=== PATIENT | male | born 1940 | race Caucasian/White ===

== ENCOUNTER 2019-05-16 13:57 | Observation (INO) | payer MEDICARE, BC ==
[~2019-05-16] VITALS: Ht 188 cm; Wt 79.5 kg
--- NOTE | 2019-05-16 15:41 | Diagnostic Imaging Report ---
Exam: Head CT without contrast History: Left-sided weakness, unsteady gait Comparison studies: None Technique: Axial images were obtained from the skull base to the vertex. Coronal and sagittal images reconstructed from the axial data. Dose modulation, iterative reconstruction, and/or weight based adjustment of the mA/kV was utilized to reduce the radiation dose to as low as reasonably achievable. Radiation dose: Total DLP: 969 mGy*cm. Estimated effective dose: DLP x 0.015 Intravenous contrast: None Findings: Scalp: No abnormalities. Bones: No fractures, blastic or lytic lesions. Brain sulci: Mildly prominent. Ventricles: Normal in size and configuration. No hydrocephalus. Extra-axial spaces: Mildly prominent extra-axial spaces along the bifrontal convexities without significant mass effect may be secondary to chronic hypodense subdural fluid collections or secondary to volume loss. No mass or acute hemorrhage. Parenchyma: No mass, acute hemorrhage or acute or chronic cortical insults. Sellar/suprasellar region: No abnormalities. Craniocervical junction: Patent foramen magnum. No Chiari one malformation. Incidental findings: Atherosclerotic calcifications in the carotid siphons and intradural vertebral arteries. IMPRESSION: 1. No acute intracranial abnormalities. 2. Mild generalized volume loss. 3. Mildly prominent extra-axial spaces without mass effect at the bifrontal convexities may be due to volume loss or possibly small chronic extra-axial fluid collections. Signed by: Dr. Timoteo Slaughter M.D. on 05/16/2019 3:38 PM
[2019-05-16] MEDS ORDERED: KETOROLAC TROMETHAMINE 30 MG/ML VIAL IV ONE (16:23)
[2019-05-16] MEDS ORDERED: MORPHINE SULFATE 2 MG/ML SYR 1ML IV PRN (16:45)
[2019-05-16] MEDS ORDERED: ASPIRIN 81 MG CHEW TAB PO ONE (16:45)
--- OUTSIDE RECORDS SUMMARY | 2019-05-16 17:26 | XMS REPORT ---
Author Author [facility] Address Unknown Phone Unavailable Care Team Providers Care Senior Data Analyst Name Role Phone Peyton OCAMPO Unavailable Unavailable Problems This patient has no known problems. Allergies, Adverse Reactions, Alerts This patient has no known allergies or adverse reactions. Medications This patient has no known medications. Results Test Description Test Time Test Comments Text Results Atomic Results Result Comments CT BRAIN WO-HOPD 2019-05-16 15:30:00 [place] [address] Patient Name: GRICEL KNOTT MR #: [id number] : 1940 Age/Sex: 79/M Req #: [id number] Adm Physician: Ordered by: YAIMA OCAMPO MD Report #: [id number] Location: [facility] Room/Bed: Procedure: [id number] HOPD/CT BRAIN WO-HOPD Exam Date: 05/16/19 Exam Time: 1519 REPORT STATUS: Signed Exam: Head CT without contrast History: Left-sided weakness, unsteady gait Comparison studies: None Technique: Axial images were obtained from the skull base to the vertex. Coronal and sagittal images reconstructed from the axial data. Dose modulation, iterative reconstruction, and/or weight based adjustment of the mA/kV was utilized to reduce the radiation dose to as low as reasonably achievable. Radiation dose: Total DLP: 969 mGy*cm. Estimated effective dose: DLP x 0.015 Intravenous contrast: None Findings: Scalp: No abnormalities. Bones: No fractures, blastic or lytic lesions. Brain sulci: Mildly prominent. Ventricles: Normal in size and configuration. No hydrocephalus. Extra-axial spaces: Mildly prominent extra-axial spaces along the bifrontal convexities without significant mass effect may be secondary to chronic hypodense subdural fluid collections or secondary to volume loss. No mass or acute hemorrhage. Parenchyma: No mass, acute hemorrhage or acute or chronic cortical insults. Sellar/suprasellar region: No abnormalities. Craniocervical junction: Patent foramen magnum. No Chiari one malformation. Incidental findings: Atherosclerotic calcifications in the carotid siphons and intradural vertebral arteries. IMPRESSION: 1. No acute intracranial abnormalities. 2. Mild generalized volume loss. 3. Mildly prominent extra-axial spaces without mass effect at the bifrontal convexities may be due to volume loss or possibly small chronic extra-axial fluid collections. Signed by: Dr. Antonio Slaughter M.D. on 05/16/2019 3:38 PM Dictated By: ANTONIO SLAUGHTER MD [id number] Transcribed By: ARTEM on 05/16/19 1538 COPY TO: YAIMA OCAMPO MD
--- NOTE | 2019-05-16 17:35 | NUR ---
PT AND FAMILY AWARE OF POC TO TRANSFER, VITAL SIGNS STABLE, PT VOICES NO COMPLAINTS AT THIS TIME.
--- NOTE | 2019-05-16 17:40 | NUR ---
[facility] CALLED FOR TRANSPORT ETA 45 MIN
--- NOTE | 2019-05-16 18:12 | NUR ---
REPORT TO MAYANK WOODS ALL QUESTIONS ANSWERED
[2019-05-16 19:15] VITALS: BP 183/84
--- NOTE | 2019-05-16 19:15 | NUR ---
patient is a new admit that arrived via stretcher. patient is awake and talking. patient has been assisted into the bed. bed is in the lowest position and call patel is within reach. will continue to monitor patient.
--- NOTE | 2019-05-16 19:30 | NUR ---
patient has a blood pressure of 183/84. MD notifed over phone. received new order for one time does of nifedipine ER 30mg. Medication has been given to patient guillermo continue to monitor patient.
[2019-05-16 20:00] VITALS: BP 183/84
[2019-05-16] MEDS ORDERED: NIFEDIPINE CR 30 MG TAB PO ONE (20:30)
[2019-05-16] MEDS: MORPHINE SULFATE INJ 4 MG/ML INJ 1ML IV PRN (21:14)
[2019-05-16] MEDS: ONDANSETRON HCL INJ 2MG/ML 2ML 2 MG/ML VIAL IV PRN (21:15)
[2019-05-16] MEDS: SODIUM CHLORIDE 0.9% 1000ML 1,000 ML IV SCH (21:27)
[2019-05-17] VITALS (7 sets, daily range): BP systolic 114–146; BP diastolic 62–98
[2019-05-17 05:41] LABS: BASOPHILS # (AUTO) 0.1 (0.0-0.1); BASOPHILS % 1.3 % (0.0-1.0); EOSINOPHILS # (AUTO) 0.2 (0.0-0.4); EOSINOPHILS % 2.3 % (0.0-6.0); HEMATOCRIT 35.5 % (38.2-49.6); HEMOGLOBIN 12.1 g/dL (14.0-18.0); LYMPHOCYTES # (AUTO) 2.1 (1.0-3.2); MEAN CORPUSCULAR HEMOGLOBIN 32.2 pg (28-32); MEAN CORPUSCULAR HGB CONC 34.1 g/dL (31-35); MEAN CORPUSCULAR VOLUME 94.4 fL (81-99); MONOCYTES # (AUTO) 0.8 (0.2-0.8); MONOCYTES % 7.8 % (4.4-11.3); NEUTROPHILS # (AUTO) 6.6 (2.1-6.9); NEUTROPHILS % 65.6 % (38.7-80.0); PLATELET COUNT 139 x10e3/uL (140-360); RED BLOOD COUNT 3.76 x10e6/uL (4.3-5.7); RED CELL DISTRIBUTION WIDTH 13.5 % (11.7-14.4)
[2019-05-17 05:54] LABS: PROTHROMBIN TIME 13.7 seconds (11.9-14.5)
[2019-05-17 05:55] LABS: PARTIAL THROMBOPLASTIN TIME 31.5 seconds (23.8-35.5)
[2019-05-17 05:57] LABS: ANION GAP 12.4 mmol/L (8-16); BLOOD UREA NITROGEN 15 mg/dL (7-26); BUN/CREATININE RATIO 19 (6-25); CALCIUM 9.1 mg/dL (8.4-10.2); CARBON DIOXIDE 25 mmol/L (22-29); CHLORIDE 105 mmol/L (98-107); CHOL/HDL RATIO 2.5 (3.9-4.7); CHOLESTEROL 132 MD/DL (0-199); EST GLOMERULAR FILTRATION RATE > 60 ML/MIN (60-); GLUCOSE 81 mg/dL (74-118); HDL CHOLESTEROL 52 MG/DL (40-60); LDL CHOLESTEROL 68 MG/DL (60-130); POTASSIUM 4.4 mmol/L (3.5-5.1); SODIUM 138 mmol/L (136-145); TRIGLYCERIDES 59 MG/DL (0-149)
[2019-05-17] MEDS: MORPHINE SULFATE INJ 4 MG/ML INJ 1ML IV PRN (06:21)
[2019-05-17] MEDS: ONDANSETRON HCL INJ 2MG/ML 2ML 2 MG/ML VIAL IV PRN (06:21)
--- NOTE | 2019-05-17 06:55 | NUR ---
Pt received resting in bed. Alert and oriented x4. Oriented to staff and surroundings. Encouraged to press call patel if help needed. Emotional support given. Will monitor
--- NOTE | 2019-05-17 06:58 | NUR ---
report given to day nurse. patient is resting comfortably in bed. bed is in lowest position and call patel is within reach.
[2019-05-17 07:03] LABS: CREATINE KINASE 62 IU/L (30-200)
[2019-05-17] MEDS: ASPIRIN 81 MG ENTERIC COATED PO SCH (08:14)
[2019-05-17] MEDS: SODIUM CHLORIDE 0.9% 1000ML 1,000 ML IV SCH (08:14)
[2019-05-17] MEDS ORDERED: ACETAMINOPHEN 325 MG TAB PO PRN (10:45)
[2019-05-17] MEDS ORDERED: ALFUZOSIN HCL10 MG PO (11:41)
[2019-05-17] MEDS ORDERED: MULTIPLE VITAM1 EAC2 PO (11:41)
[2019-05-17] MEDS ORDERED: TEMAZEPAM15 MG PO (11:41)
[2019-05-17] MEDS ORDERED: DIOVAN80 MG PO (11:41)
[2019-05-17] MEDS ORDERED: ULTRAM 50MG50 MG PO (11:41)
[2019-05-17] MEDS ORDERED: ASPIR 8181 MG PO (11:41)
[2019-05-17] MEDS ORDERED: TOPAMAX25 MG PO (11:41)
[2019-05-17] MEDS ORDERED: FLUTICASONE PRO16 GM NS (11:41)
[2019-05-17] MEDS ORDERED: METOPROLOL SUCC50 MG PO (11:41)
[2019-05-17] MEDS ORDERED: COZAAR25 MG PO (11:41)
[2019-05-17] MEDS ORDERED: LIPITOR20 MG PO (11:41)
[2019-05-17] MEDS ORDERED: PANTOPRAZOLE SO40 MG PO (11:41)
--- NOTE | 2019-05-17 12:25 | Diagnostic Imaging Report ---
History: Loss of use left leg, still numb to the Comparison studies: CT head 05/16/2019 Technique: Sagittal T2; axial DWI, FLAIR, MPGR, T1, Coronal FLAIR. Intravenous contrast: None Findings: Scalp: Normal in signal . No masses . Bone marrow: Normal in signal intensity. Extra-axial: No masses, no fluid collections. Brain sulci: Mildly prominent. Ventricles: Normal in size . No hydrocephalus . Parenchyma: Few small T-2/flair hyperintensities of the periventricular and deep white matter. T2/FLAIR hyperintensity of the central xochilt No masses, hemorrhage, acute or chronic vascular insults. Suprasellar region: No abnormalities. Craniocervical junction: No abnormalities. Patent foramen magnum. No Chiari one malformation. Vessels: Normal flow-voids in the arteries and sinuses. Prominent left carotid terminus. Trace of fluid at the bilateral mastoid air cells IMPRESSION: 1. No acute abnormalities. 2. T2/FLAIR hyperintensity of the central xochilt, this could be related to microvascular ischemic changes or metabolic derangements with with demyelination. 3. Mild chronic microvascular ischemic changes of the white matter mild diffuse volume loss. 4. Prominent left carotid terminus, recommend nonemergent MRA to rule out aneurysm. Signed by: DR Bijan Nazario M.D. on 05/17/2019 12:22 PM
--- NOTE | 2019-05-17 12:44 | NUR ---
Pt resting comfortably in bed. Emotional support given. Pt encouraged to press call patel if help needed. Will monitor
[2019-05-17] MEDS: TOPIRAMATE 25 MG TAB PO SCH (13:12)
[2019-05-17] MEDS: TRAMADOL HCL 50 MG TAB PO PRN (14:20)
[2019-05-17] MEDS ORDERED: ONDANSETRON HCL 4 MG ORAL DISINTEGRATING TAB PO PRN (15:45)
[2019-05-17] MEDS: FLUTICASONE PROPIONATE NASAL SPRAY NS SCH (17:40)
--- NOTE | 2019-05-17 19:00 | NUR ---
received report from day nurse. patient is resting comfortably in bed. bed is in lowest position and call patel is within reach. will continue to monitor patient.
--- NOTE | 2019-05-17 19:08 | NUR ---
Pt resting in bed comfortably. Handoff given to oncoming nurse.
[2019-05-17] MEDS: MAGNESIUM HYDROXIDE 30 ML UDC PO PRN (20:44)
[2019-05-17] MEDS: ATORVASTATIN 20 MG TAB PO SCH (20:44)
[2019-05-18] VITALS (10 sets, daily range): BP systolic 94–144; BP diastolic 58–98
[2019-05-18] MEDS: TOPIRAMATE 25 MG TAB PO SCH ×2 (00:20→11:58)
[2019-05-18] MEDS: TRAMADOL HCL 50 MG TAB PO PRN (00:56)
[2019-05-18] MEDS: TEMAZEPAM 15 MG CAP PO PRN (02:23)
--- NOTE | 2019-05-18 06:57 | NUR ---
report given to day nurse. patient is resting comfortably in bed. bed is in lowest position and call patel is within reach.
[2019-05-18] MEDS: METOPROLOL SUCCINATE 50 MG TAB XL PO SCH (08:14)
[2019-05-18] MEDS: MAGNESIUM HYDROXIDE 30 ML UDC PO PRN (08:14)
[2019-05-18] MEDS: ASPIRIN 81 MG ENTERIC COATED PO SCH (08:14)
[2019-05-18] MEDS: PANTOPRAZOLE SOD 40 MG TABEC PO SCH (08:14)
[2019-05-18] MEDS: MULTIVITAMINS/MINERALS TAB PO SCH (08:14)
--- NOTE | 2019-05-18 08:14 | NUR ---
some BP meds being held until further notice due to BP 94/73. metoprolol given. mom given for constipation. family to bring alfuzosin from home.
[2019-05-18] MEDS: FLUTICASONE PROPIONATE NASAL SPRAY NS SCH ×2 (08:20→16:26)
[2019-05-18] MEDS ORDERED: MULTIVITAMIN PO SCH (09:00)
[2019-05-18] MEDS ORDERED: VALSARTAN 80 MG TAB PO SCH (09:00)
[2019-05-18] MEDS ORDERED: NON-FORMULARY MEDICATION (Alfuzosin Hcl 10 MG) PO SCH (09:00)
[2019-05-18] MEDS: LOSARTAN POTASSIUM 25 MG TAB PO SCH (09:00)
[2019-05-18] MEDS: NON-FORMULARY MEDICATION (Alfuzosin Hcl 10 MG) PO SCH (11:53)
--- NOTE | 2019-05-18 13:51 | Diagnostic Imaging Report ---
History: Left arm and left leg weakness. Comparison studies: None Technique: Sagittal and axial T2 and T1, sagittal STIR and axial T2*gradient-echo Intravenous contrast: None Findings: Alignment: Normal lordosis. Cervicomedullary junction: No abnormalities. Patent foramen magnum. Soft tissues: No T2 hyperintense inflammatory changes. Spinal cord: Normal in size and signal from the foramen magnum through T1 Vertebrae: No fractures, infection or neoplasm. Degenerative changes: C1-C2: Fluid signal at the left C1-C2 lateral mass articulation may reflect bursal formation. No associated marrow edema. C2-C3: Mildly degenerated disc. Small disc osteophyte complex, uncovertebral arthrosis and mild facet arthrosis without significant canal or foraminal stenosis. C3-C4: Moderately degenerated disks with loss of disc height. Minimal retrolisthesis of C3 on C4 with associated disc osteophyte complex, mildly thickened ligamentum flavum on the left, uncovertebral arthrosis and facet arthrosis with mild canal stenosis and severe bilateral foraminal stenosis. C4-C5: The disc space and left facets are fused. Osteophyte complex, uncovertebral arthrosis and facet arthrosis with moderate bilateral foraminal stenosis. No significant canal stenosis C5-C6: Moderately degenerated disc. Disc osteophyte complex, uncovertebral arthrosis and facet arthrosis moderate to severe bilateral foraminal stenosis. C6-C7: Moderately degenerated disc. Minimal retrolisthesis of C6 on C7 with disc osteophyte complex, thickened ligamentum flavum, uncovertebral arthrosis and facet arthrosis which result in mild canal stenosis and severe right and moderate to severe left foraminal stenosis. C7-T1: Moderately degenerated disc. Minimal anterolisthesis of C7 on T1 with disc osteophyte complex and facet arthrosis with mild bilateral foraminal stenosis. No significant canal stenosis. Incidental finds: Nonspecific increased T2/STIR signal within the xochilt as seen on prior MRI of 05/17/2019. Small perineural nerve root sleeve cyst at the right C7-T1 neural foramen. IMPRESSION: 1. Degenerative changes with advanced multilevel disc degeneration, multilevel facet arthrosis, mild canal stenosis at C3-C4, C5-C6 and at C6-C7 and varying degrees of moderate to severe foraminal stenosis from C3 to C7. 2. The C4-C5 disc space and left facets are fused. Signed by: Dr. Timoteo Slaughter M.D. on 05/18/2019 1:48 PM
--- NOTE | 2019-05-18 14:24 | Diagnostic Imaging Report ---
Exam: Lumbar spine MRI without IV contrast History: Leg weakness. Comparison studies: None Technique: Sagittal and axial T2 , sagittal T1 and IR, axial spin density oblique and coronal T2. Intravenous contrast: None Findings: Number of lumbar vertebral bodies: 5. Alignment: Mild hyperlordotic curvature. Mild lumbar curvature convex to the left centered L3-L4. Soft tissues: No T2 hyperintense inflammatory changes. Dorsal paraspinal musculature: Mild bilateral symmetric fatty-replaced atrophy. Lower thoracic cord: Normal in signal and morphology. The tip of the conus is at L1-L2. Cauda equina: No mass. No arachnoiditis Vertebrae: No compression fracture, infection or neoplasm. Small Schmorl's node along the inferior L3 endplate with adjacent circumscribed 6 mm T2/STIR hyperdensity may reflect adjacent degenerative cystic change. Small shallow present along the T11 and T12 endplates without associated marrow edema. Degenerative changes: L1-L2: Mildly degenerated disc. Small disc bulge and mild facet arthrosis without significant canal or foraminal stenosis. L2-L3: Mildly degenerated disc. Asymmetric left bulging disc and mild facet arthrosis without significant canal or foraminal stenosis. L3-L4: Mildly degenerated disc. Symmetric disc bulge, thickened ligamentum flavum and bilateral facet arthrosis with small right dorsal synovial ligamenta flava cyst result in mild canal stenosis and moderate right and mild left foraminal stenosis. There are small bilateral facet effusions with small extra spinal synovial cyst on the right. L4-L5: Mildly degenerated disc with small annular fissures. Mild reactive endplate edema on the right along the concavity lumbar curvature. Asymmetric right disc osteophyte complex and facet arthrosis with moderate bilateral foraminal stenosis. L5-S1: Mildly degenerated disc with swelling of the fissure. Disc osteophyte complex and facet arthrosis with mild bilateral foraminal stenosis. No canal stenosis. Additional findings: Abdominal aorta is tortuous and with luminal irregularity related to advanced atherosclerosis. The suprarenal aorta measures of 2 approximately 3.5 cm in diameter. The infrarenal aorta measures up to approximately 3.0 cm. Bilateral iliac arteries are also mildly ectatic. A few small T2 hyperintense lesions in both kidneys are most likely cysts. IMPRESSION: 1. Degenerative changes with mild multilevel disc degeneration, multilevel facet arthrosis, mild canal stenosis at L3-L4 and moderate foraminal stenosis on the right at L3-L4 and bilaterally at L4-5. 2. Abdominal aortic aneurysm with advanced atherosclerosis. Recommend CTA to further evaluate. Signed by: Dr. Timoteo Slaughter M.D. on 05/18/2019 2:20 PM
--- NOTE | 2019-05-18 16:23 | NUR ---
SPOKE WITH DOCTOR ABOUT DISCHARGE PLAN AND OPTIONS FOR PT TO CHOOSE, PT STATES HE WILL NOT GO TO A SNF AND DOES NOT BELIEVE HE CAN TOLERATE 3 HOURS OF THERAPY A DAY FOR INPATIENT, STATES WOULD PREFER TO GO TO AN OUTPATIENT THERAPY OF SOME SORT, STATES DOESN'T REALLY WANT TO HAVE HOME HEALTH. STATES HE WILL FOLLOW UP WITH HIS [employer] DOCTORS TO SEE WHAT THEY RECOMMEND AND WILL WAIT AND SPEAK WITH DR RICHTER IN THE MORNING.
[2019-05-18] MEDS: ATORVASTATIN 20 MG TAB PO SCH (20:13)
[2019-05-19] MEDS: TEMAZEPAM 15 MG CAP PO PRN (00:05)
[2019-05-19] MEDS: TOPIRAMATE 25 MG TAB PO SCH (00:05)
[2019-05-19 05:00] VITALS: BP 90/60
[2019-05-19 08:04] VITALS: BP 106/60
[2019-05-19 08:07] VITALS: BP 106/60
[2019-05-19] MEDS: FLUTICASONE PROPIONATE NASAL SPRAY NS SCH (08:37)
[2019-05-19] MEDS: METOPROLOL SUCCINATE 50 MG TAB XL PO SCH (08:37)
[2019-05-19] MEDS: NON-FORMULARY MEDICATION (Alfuzosin Hcl 10 MG) PO SCH (08:37)
[2019-05-19] MEDS: MULTIVITAMINS/MINERALS TAB PO SCH (08:37)
[2019-05-19] MEDS: PANTOPRAZOLE SOD 40 MG TABEC PO SCH (08:37)
[2019-05-19] MEDS: ASPIRIN 81 MG ENTERIC COATED PO SCH (08:37)
[2019-05-19] MEDS: LOSARTAN POTASSIUM 25 MG TAB PO SCH (08:37)
[2019-05-19 11:26] VITALS: BP 88/69
--- NOTE | 2019-05-19 11:57 | NUR ---
CM PROVIDED PT WITH RW FOR DISCHARGE HOME TODAY GAVE PT AND A LIST OF IN-NETWORK SELECT OP P.T. FACILITIES WITH MY BUSINESS CARD
--- NOTE | 2019-05-19 19:29 | Discharge Summary ---
PRIMARY CARE DOCTOR: Dr. Daryl Starr FINAL DIAGNOSIS: Spinal stenosis. SECONDARY DIAGNOSES: 1. Hypertension. 2. Chronic stable systolic congestive heart failure, EF 30%. 3. History of vasovagal syncope. 4. Aortic/renal aneurysm repair. CONSULTANTS: None. PROCEDURES/STUDIES PERFORMED: 1. MRI of the back and MRI of the brain and echocardiogram. 2. Carotid ultrasound. HISTORY: Per H and P. HOSPITAL COURSE: The patient came in with a fall due to left leg giving out. In the ER, MRI of the brain was done which did not show any acute stroke. Echocardiogram showed the EF of 30%. However, patient is compensated. Carotid ultrasound was benign. MRI of the spine revealed spinal stenosis, however, it is only mild to moderate. Therefore, surgical intervention is not indicated. The patient slowly improved with physical therapy. We have recommended physical therapy at a nursing home home. However, the patient declined. He wishes to proceed with outpatient physical therapy. The patient was seen and examined today. CONDITION ON DISCHARGE: Improved. DISCHARGE MEDICATIONS: Please see medication reconciliation form. Euniceching MD VANI Howard/DEBBIE /[id number] cc: [facility]
== END 2019-05-19 13:15 | disposition home or self-care (01) ==
LOC: FSED 13:57 → ERHOLD 16:49 → IMCU 19:10
PROVIDERS: ADMIT Internal Medicine; ATTEND Internal Medicine
DX: M48.061 Spinal stenosis, lumbar region without neurogenic claudication (principal); I11.0 Hypertensive heart disease with heart failure; I50.22 Chronic systolic (congestive) heart failure; R53.1 Weakness; E78.5 Hyperlipidemia, unspecified; Z85.46 Personal history of malignant neoplasm of prostate; Z88.1 Allergy status to other antibiotic agents; Z88.5 Allergy status to narcotic agent; Z91.048 Other nonmedicinal substance allergy status; M54.16 Radiculopathy, lumbar region; Z82.49 Family history of ischemic heart disease and other diseases of the circulatory system; R55 Syncope and collapse
CPT/HCPCS: 36415 ×2; 70450; 70551; 72141; 72148; 80048; 80053; 80061; 81003; 82550 ×2; 82553 ×2; 84484 ×2; 85025 ×2; 85610; 85730; 93005; 93306; 93880; 96361; 97110; 97116 ×3; 97139; 97162; 99284; G0378 ×4; J1885; J2270 ×2; J2405 ×2; J7030 ×2; S0164 ×2; 96360

== ENCOUNTER 2021-09-28 13:08 | Emergency (ER) | payer MEDICARE, BC, OTHER ==
[~2021-09-28] VITALS: Ht 185.4 cm; Wt 77.1 kg
[~2021-09-28 13:08] MED LIST: ALFUZOSIN HCL10 MG PO; ASPIR 8181 MG PO; COZAAR25 MG PO; DIOVAN80 MG PO; FLUTICASONE PRO16 GM NS; LIPITOR20 MG PO; METOPROLOL SUCC50 MG PO; MULTIPLE VITAM1 EAC2 PO; PANTOPRAZOLE SO40 MG PO; TEMAZEPAM15 MG PO; TOPAMAX25 MG PO; ULTRAM 50MG50 MG PO
[2021-09-28 14:35] VITALS: BP 161/78
== END 2021-09-28 14:50 | disposition home or self-care (01) ==
LOC: FSED 13:16
DX: S00.83XA Contusion of other part of head, initial encounter (principal); M25.512 Pain in left shoulder; M25.552 Pain in left hip; R55 Syncope and collapse; W01.0XXA Fall on same level from slipping, tripping and stumbling without subsequent striking against object, initial encounter; Y93.01 Activity, walking, marching and hiking; R94.31 Abnormal electrocardiogram [ECG] [EKG]; I10 Essential (primary) hypertension; E78.5 Hyperlipidemia, unspecified; K21.9 Gastro-esophageal reflux disease without esophagitis; Z85.46 Personal history of malignant neoplasm of prostate
CPT/HCPCS: 70450; 71046; 80053; 82553; 84484; 85025; 93005; 99283